=== PATIENT | female | born 1930 | race Caucasian/White ===

== ENCOUNTER 2019-12-12 10:11 | Inpatient (IN) ==
[2019-12-12] MEDS ORDERED: SODIUM CHLORIDE 0.9% 1,000 ML IV STA (10:39)
[2019-12-12 11:41] LABS: Basophils % 0.1 % (0.0-0.8); Hematocrit 31.4 VOL% (35.7-47.0); Hemoglobin 9.9 GM/DL (12.0-16.0); Immature Granulocytes % 0.5 %; Immature Granulocytes Absolute 0.07 #; Lymphocytes # 0.5 10*3/uL (1.4-4.0); Lymphocytes % 3.2 % (21.3-54.2); Mean Corpuscular HGB Conc 31.5 GM/DL (32-36); Mean Corpuscular Volume 95.4 FL (87-102); Mean Platelet Volume 9.5 FL (9.6-12.0); Monocytes % 3.5 % (1.7-12.7); Neutrophils % 92.7 % (38.7-73.9); Platelet Count 449 T/CUMM (130-400); Red Blood Count 3.29 MC/CUMM (3.8-5.5); Red Cell Distribution Width 15.3 % (9.3-17.3); White Blood Count 15.4 T/CUMM (4-12)
[2019-12-12 11:46] LABS: Amorphous Crystals,Urine Occasional /HPF (Few); Bacteria,Urine Occasional /HPF (Few); Bilirubin,Urine Negative (Negative); Blood, Urine Negative (Negative); Glucose,Urine (UA) Negative (Negative); Hyaline Casts,Urine 42 /LPF (0-3); Ketones,Urine Negative (Negative); Mucus,Urine Occasional /LPF (Occasional); Nitrite,Urine Negative (Negative); Protein,Urine Negative; RBC,Urine 1 /HPF (0-4); Squamous Epithelial Cell,Urine Occasional /HPF (0-10); Urine Appearance Slightly Hazy (Clear); Urine Color Yellow (Yellow); Urine Specific Gravity 1.017 (1.001-1.035); Urine Urobilinogen < 2.0 EU/DL (0.2-1.0); WBC,Urine <1 /HPF (0-6)
[2019-12-12 12:15] LABS: Lymphocytes 2 % (20-55); Segmented Neutrophils 96 % (50-85); Total Cells Counted 100
[2019-12-12 12:16] LABS: Anisocytosis Slight; Macrocytosis Slight; Microcytosis Slight; Platelet Estimate Normal; Poikilocytosis Slight; Target Cells Slight
[2019-12-12 12:28] LABS: Albumin 2.7 G/DL (3.4-5.0); Bilirubin,Total 0.4 MG/DL (0.2-1.0); Osmolality,Calculated 323.4 MOS/KG (273-304); Total Protein 8.2 G/DL (6.4-8.3)
[2019-12-12] MEDS ORDERED: DEXTROSE 50% 25 GM/50 ML VIAL IV PRN (14:26)
[2019-12-12] MEDS ORDERED: ACETAMINOPHEN 325 MG TABLET PO PRN (14:26)
[2019-12-12] MEDS ORDERED: ONDANSETRON 4 MG/2 ML VIAL IV PRN (14:26)
[2019-12-12] MEDS ORDERED: GLUCAGON 1 MG VIAL IM PRN (14:26)
[2019-12-12] MEDS ORDERED: LEVOFLOXACIN INJ 500 MG in PREMIX 1 EACH IV STA (14:38)
[2019-12-12] MEDS: INSULIN REGULAR 100 UNIT/ML SUBCUT SCH ×2 (17:14→21:46)
[2019-12-12] MEDS: MORPHINE 4 MG/1 ML VIAL IV PRN (17:28)
[2019-12-12] MEDS: DEXTROSE 5% NACL 0.45% 1,000 ML IV SCH (17:29)
[2019-12-12] MEDS: CLINDAMYCIN INJ 300 MG in PREMIX 1 EACH IV SCH (17:55)
[2019-12-12] MEDS: ALBUTEROL/IPRATROPIUM 3 ML NEB RESP TX SCH (19:15)
[2019-12-13] MEDS: MORPHINE 4 MG/1 ML VIAL IV PRN (00:43)
[2019-12-13] MEDS: CLINDAMYCIN INJ 300 MG in PREMIX 1 EACH IV SCH ×3 (03:04→18:23)
[2019-12-13] MEDS: ALBUTEROL/IPRATROPIUM 3 ML NEB RESP TX SCH ×4 (03:29→19:54)
[2019-12-13 05:34] LABS: Basophils % 0.1 % (0.0-0.8); Eosinophils % 0.1 % (0.00-10.9); Hematocrit 29.4 VOL% (35.7-47.0); Immature Granulocytes % 0.5 %; Immature Granulocytes Absolute 0.07 #; Lymphocytes # 0.9 10*3/uL (1.4-4.0); Lymphocytes % 6.2 % (21.3-54.2); Mean Corpuscular HGB Conc 30.6 GM/DL (32-36); Mean Corpuscular Volume 96.4 FL (87-102); Mean Platelet Volume 9.7 FL (9.6-12.0); Monocytes % 7.2 % (1.7-12.7); Neutrophils % 85.9 % (38.7-73.9); Platelet Count 372 T/CUMM (130-400); Red Blood Count 3.05 MC/CUMM (3.8-5.5); Red Cell Distribution Width 15.2 % (9.3-17.3); White Blood Count 13.8 T/CUMM (4-12)
[2019-12-13 06:02] LABS: Alanine Aminotransferase < 9 U/L (13-56); Albumin 2.3 G/DL (3.4-5.0); Alkaline Phosphatase 85 U/L (45-117); Aspartate Amino Transferase 20 U/L (0-37); Blood Urea Nitrogen 84 MG/DL (7-18); Calcium 8.8 MG/DL (8.5-10.1); Estimated Glom Filtration Rate 16 ML/MIN; Glucose 161 MG/DL (74-106); HDL Cholesterol 64 MG/DL (40-60); Osmolality,Calculated 314.8 MOS/KG (273-304); Risk Ratio 3.44; Total Protein 7.2 G/DL (6.4-8.3); Triglycerides 133 MG/DL (2-150); VLDL CHOLESTEROL 26.6 MG/DL
[2019-12-13] MEDS ORDERED: PANTOPRAZOLE 40 MG TABLET PO SCH (09:00)
[2019-12-13] MEDS ORDERED: HYDROmorphone 2 MG/1 ML VIAL IV PRN ×2 (09:58→15:08)
[2019-12-13] MEDS: INSULIN REGULAR 100 UNIT/ML SUBCUT SCH ×4 (10:06→23:29)
[2019-12-13] MEDS: THIAMINE 200 MG/2 ML VIAL IV SCH (10:07)
[2019-12-13] MEDS: DEXTROSE 5% NACL 0.45% 1,000 ML IV SCH ×2 (10:11→12:39)
[2019-12-13] MEDS: PANTOPRAZOLE 40 MG VIAL IV SCH ×2 (12:52→21:00)
[2019-12-13] MEDS: LIDOCAINE 5% PATCH TRANSDERM SCH (18:23)
[2019-12-13] MEDS: HYDROcod/ACETAMIN 7.5-325 MG/15 ML UDCUP PO PRN (18:23)
[2019-12-14] MEDS: ALBUTEROL/IPRATROPIUM 3 ML NEB RESP TX SCH ×4 (01:08→19:25)
[2019-12-14] MEDS ORDERED: SODIUM PHOSPHATE INJ 15 MMOL in SODIUM CHLORIDE 0.9% 250 ML IV ONE (08:00)
[2019-12-14] MEDS: CLINDAMYCIN INJ 300 MG in PREMIX 1 EACH IV SCH ×3 (09:55→17:50)
[2019-12-14] MEDS: PANTOPRAZOLE 40 MG VIAL IV SCH ×2 (10:03→20:31)
[2019-12-14] MEDS: THIAMINE 200 MG/2 ML VIAL IV SCH (10:03)
[2019-12-14] MEDS: INSULIN REGULAR 100 UNIT/ML SUBCUT SCH ×4 (10:07→20:29)
[2019-12-14] MEDS: MULTIVITAMIN LIQUID (CENTRUM) 60 ML BOTTLE NG SCH (10:08)
[2019-12-14] MEDS: DEXTROSE 5% NACL 0.45% 1,000 ML IV SCH ×2 (12:30→23:37)
[2019-12-14 13:01] LABS: Calcium 7.9 MG/DL (8.5-10.1); Osmolality,Calculated 297.4 MOS/KG (273-304)
[2019-12-14] MEDS: LIDOCAINE 5% PATCH TRANSDERM SCH (14:05)
[2019-12-14] MEDS: HYDROcod/ACETAMIN 7.5-325 MG/15 ML UDCUP PO PRN (21:00)
[2019-12-15] MEDS: CLINDAMYCIN INJ 300 MG in PREMIX 1 EACH IV SCH ×3 (01:43→17:57)
[2019-12-15] MEDS: ALBUTEROL/IPRATROPIUM 3 ML NEB RESP TX SCH ×4 (02:12→19:18)
[2019-12-15 05:05] LABS: Basophils % 0.1 % (0.0-0.8); Eosinophils % 0.4 % (0.00-10.9); Hematocrit 24.2 VOL% (35.7-47.0); Hemoglobin 7.7 GM/DL (12.0-16.0); Immature Granulocytes % 0.7 %; Immature Granulocytes Absolute 0.07 #; Lymphocytes % 9.7 % (21.3-54.2); Mean Corpuscular HGB Conc 31.8 GM/DL (32-36); Mean Corpuscular Volume 94.2 FL (87-102); Monocytes % 7.1 % (1.7-12.7); Platelet Count 255 T/CUMM (130-400); Red Blood Count 2.57 MC/CUMM (3.8-5.5); Red Cell Distribution Width 15.2 % (9.3-17.3); White Blood Count 10.5 T/CUMM (4-12)
[2019-12-15 05:26] LABS: Calcium 7.3 MG/DL (8.5-10.1); Osmolality,Calculated 285.5 MOS/KG (273-304)
[2019-12-15] MEDS: INSULIN REGULAR 100 UNIT/ML SUBCUT SCH ×4 (07:18→21:22)
[2019-12-15] MEDS ORDERED: propofoL 200 MG/20 ML VIAL IV ONE (09:00)
[2019-12-15] MEDS ORDERED: ETOMIDATE 20 MG/10 ML VIAL IV ONE (09:00)
[2019-12-15] MEDS ORDERED: LIDOCAINE 2% 5 ML VIAL ONE (09:00)
[2019-12-15] MEDS: MULTIVITAMIN LIQUID (CENTRUM) 60 ML BOTTLE NG SCH (09:41)
[2019-12-15] MEDS: THIAMINE 200 MG/2 ML VIAL IV SCH (09:58)
[2019-12-15] MEDS: PANTOPRAZOLE 40 MG VIAL IV SCH ×2 (09:59→20:37)
[2019-12-15] MEDS: LIDOCAINE 5% PATCH TRANSDERM SCH (10:21)
[2019-12-15] MEDS: DEXTROSE 5% NACL 0.45% 1,000 ML IV SCH ×2 (11:06→18:12)
[2019-12-15] MEDS ORDERED: TUBERCULIN SKIN TEST 0.1 ML SYRINGE INTRADERM ONE (11:30)
[2019-12-15] MEDS: LACTATED RINGERS 1,000 ML IV SCH (13:00)
[2019-12-15 17:17] LABS: Folate 5.3 NG/ML (5.4-24.0)
[2019-12-15 17:28] LABS: % Iron Saturation 12.7 % (18-50); Ferritin 392.1 ng/ml (8-252)
[2019-12-16] MEDS: ALBUTEROL/IPRATROPIUM 3 ML NEB RESP TX SCH ×4 (00:26→19:02)
[2019-12-16] MEDS: CLINDAMYCIN INJ 300 MG in PREMIX 1 EACH IV SCH ×3 (02:20→18:09)
[2019-12-16] MEDS: DEXTROSE 5% NACL 0.45% 1,000 ML IV SCH ×2 (03:38→18:02)
[2019-12-16 05:17] LABS: Basophils % 0.1 % (0.0-0.8); Eosinophils % 0.3 % (0.00-10.9); Hemoglobin 8.5 GM/DL (12.0-16.0); Immature Granulocytes % 0.5 %; Immature Granulocytes Absolute 0.05 #; Lymphocytes # 0.9 10*3/uL (1.4-4.0); Lymphocytes % 8.2 % (21.3-54.2); Mean Corpuscular HGB Conc 31.5 GM/DL (32-36); Mean Corpuscular Volume 93.4 FL (87-102); Mean Platelet Volume 10.3 FL (9.6-12.0); Monocytes % 5.5 % (1.7-12.7); Neutrophils % 85.4 % (38.7-73.9); Platelet Count 278 T/CUMM (130-400); Red Blood Count 2.89 MC/CUMM (3.8-5.5); Red Cell Distribution Width 15.2 % (9.3-17.3); White Blood Count 10.9 T/CUMM (4-12)
[2019-12-16 05:41] LABS: Alanine Aminotransferase < 6 U/L (13-56); Albumin 1.6 G/DL (3.4-5.0); Alkaline Phosphatase 82 U/L (45-117); Aspartate Amino Transferase 16 U/L (0-37); Blood Urea Nitrogen 22 MG/DL (7-18); Calcium 7.7 MG/DL (8.5-10.1); Estimated Glom Filtration Rate 49 ML/MIN; Glucose 169 MG/DL (74-106); Osmolality,Calculated 281.7 MOS/KG (273-304); Total Protein 5.8 G/DL (6.4-8.3)
[2019-12-16] MEDS: INSULIN REGULAR 100 UNIT/ML SUBCUT SCH ×4 (06:49→21:31)
[2019-12-16] MEDS: LIDOCAINE 5% PATCH TRANSDERM SCH (09:22)
[2019-12-16] MEDS: THIAMINE 200 MG/2 ML VIAL IV SCH (09:23)
[2019-12-16] MEDS: PANTOPRAZOLE 40 MG VIAL IV SCH ×2 (09:23→21:32)
[2019-12-16] MEDS: MULTIVITAMIN LIQUID (CENTRUM) 60 ML BOTTLE NG SCH (09:24)
[2019-12-16] MEDS ORDERED: MAGNESIUM SULF RIDER 2 GM in PREMIX 1 EACH IV ONE (12:46)
[2019-12-16] MEDS ORDERED: SODIUM PHOSPHATE INJ 12 MMOL in SODIUM CHLORIDE 0.9% 250 ML IV ONE (14:00)
[2019-12-16] MEDS: LACTATED RINGERS 1,000 ML IV SCH (18:02)
[2019-12-17] MEDS: ALBUTEROL/IPRATROPIUM 3 ML NEB RESP TX SCH ×4 (00:24→19:40)
[2019-12-17] MEDS: DEXTROSE 5% NACL 0.45% 1,000 ML IV SCH ×3 (00:25→20:25)
[2019-12-17] MEDS: CLINDAMYCIN INJ 300 MG in PREMIX 1 EACH IV SCH ×3 (02:40→17:12)
[2019-12-17 06:08] LABS: Basophils % 0.1 % (0.0-0.8); Eosinophils % 0.2 % (0.00-10.9); Hematocrit 24.3 VOL% (35.7-47.0); Immature Granulocytes % 0.5 %; Immature Granulocytes Absolute 0.06 #; Lymphocytes # 0.9 10*3/uL (1.4-4.0); Mean Corpuscular HGB Conc 32.9 GM/DL (32-36); Mean Corpuscular Volume 91.4 FL (87-102); Mean Platelet Volume 10.1 FL (9.6-12.0); Monocytes % 5.8 % (1.7-12.7); Neutrophils % 86.4 % (38.7-73.9); Platelet Count 283 T/CUMM (130-400); Red Blood Count 2.66 MC/CUMM (3.8-5.5); Red Cell Distribution Width 14.9 % (9.3-17.3); White Blood Count 12.6 T/CUMM (4-12)
[2019-12-17 06:25] LABS: Alanine Aminotransferase < 9 U/L (13-56); Albumin 1.5 G/DL (3.4-5.0); Alkaline Phosphatase 74 U/L (45-117); Aspartate Amino Transferase 13 U/L (0-37); Blood Urea Nitrogen 14 MG/DL (7-18); Calcium 7.6 MG/DL (8.5-10.1); Estimated Glom Filtration Rate 55 ML/MIN; Glucose 122 MG/DL (74-106); Osmolality,Calculated 276.7 MOS/KG (273-304); Total Protein 5.5 G/DL (6.4-8.3)
[2019-12-17 06:35] LABS: Hypochromasia 2+; Microcytosis 1+; Platelet Estimate Adequate
[2019-12-17] MEDS: INSULIN REGULAR 100 UNIT/ML SUBCUT SCH ×4 (07:21→20:26)
[2019-12-17] MEDS: PANTOPRAZOLE 40 MG VIAL IV SCH ×2 (10:41→20:25)
[2019-12-17] MEDS: LIDOCAINE 5% PATCH TRANSDERM SCH (10:41)
[2019-12-17] MEDS: MULTIVITAMIN LIQUID (CENTRUM) 60 ML BOTTLE NG SCH (10:41)
[2019-12-17] MEDS: THIAMINE 200 MG/2 ML VIAL IV SCH (10:41)
[2019-12-17] MEDS: LACTATED RINGERS 1,000 ML IV SCH (14:48)
[2019-12-18] MEDS: ALBUTEROL/IPRATROPIUM 3 ML NEB RESP TX SCH ×4 (00:53→19:32)
[2019-12-18] MEDS: CLINDAMYCIN INJ 300 MG in PREMIX 1 EACH IV SCH ×3 (02:50→18:40)
[2019-12-18 05:32] LABS: Basophils % 0.1 % (0.0-0.8); Eosinophils # 0.1 10*3/uL (0.0-0.87); Eosinophils % 0.8 % (0.00-10.9); Hemoglobin 8.1 GM/DL (12.0-16.0); Immature Granulocytes % 0.4 %; Immature Granulocytes Absolute 0.04 #; Lymphocytes # 0.9 10*3/uL (1.4-4.0); Lymphocytes % 8.4 % (21.3-54.2); Mean Corpuscular HGB Conc 32.4 GM/DL (32-36); Mean Corpuscular Volume 91.6 FL (87-102); Mean Platelet Volume 9.9 FL (9.6-12.0); Monocytes % 7.5 % (1.7-12.7); Neutrophils % 82.8 % (38.7-73.9); Platelet Count 275 T/CUMM (130-400); Red Blood Count 2.73 MC/CUMM (3.8-5.5); Red Cell Distribution Width 14.8 % (9.3-17.3); White Blood Count 10.5 T/CUMM (4-12)
[2019-12-18 05:49] LABS: Calcium 7.6 MG/DL (8.5-10.1); Osmolality,Calculated 268.1 MOS/KG (273-304)
[2019-12-18 06:11] LABS: Alanine Aminotransferase < 6 U/L (13-56); Albumin 1.5 G/DL (3.4-5.0); Alkaline Phosphatase 74 U/L (45-117); Aspartate Amino Transferase 13 U/L (0-37); Bilirubin,Total < 0.39 MG/DL (0.2-1.0); Blood Urea Nitrogen 8 MG/DL (7-18); Calcium 7.7 MG/DL (8.5-10.1); Estimated Glom Filtration Rate 55 ML/MIN; Glucose 125 MG/DL (74-106); Osmolality,Calculated 273.7 MOS/KG (273-304); Total Protein 5.4 G/DL (6.4-8.3)
[2019-12-18] MEDS: INSULIN REGULAR 100 UNIT/ML SUBCUT SCH ×4 (07:11→21:15)
[2019-12-18] MEDS: MULTIVITAMIN LIQUID (CENTRUM) 60 ML BOTTLE NG SCH (08:56)
[2019-12-18] MEDS: PANTOPRAZOLE 40 MG VIAL IV SCH (08:56)
[2019-12-18] MEDS: THIAMINE 200 MG/2 ML VIAL IV SCH (08:57)
[2019-12-18] MEDS: DEXTROSE 5% NACL 0.45% 1,000 ML IV SCH ×2 (08:57→21:05)
[2019-12-18] MEDS: LIDOCAINE 5% PATCH TRANSDERM SCH (09:00)
[2019-12-18] MEDS ORDERED: MAGNESIUM SULF RIDER 2 GM in PREMIX 1 EACH IV ONE (09:30)
[2019-12-18] MEDS ORDERED: SODIUM PHOSPHATE INJ 30 MMOL in SODIUM CHLORIDE 0.9% 250 ML IV ONE (09:30)
[2019-12-18] MEDS: LACTATED RINGERS 1,000 ML IV SCH (17:22)
[2019-12-19] MEDS: PANTOPRAZOLE 40 MG VIAL IV SCH ×2 (00:56→08:12)
[2019-12-19] MEDS: ALBUTEROL/IPRATROPIUM 3 ML NEB RESP TX SCH ×2 (02:05→07:25)
[2019-12-19] MEDS: CLINDAMYCIN INJ 300 MG in PREMIX 1 EACH IV SCH (05:47)
[2019-12-19] MEDS: DEXTROSE 5% NACL 0.45% 1,000 ML IV SCH (07:00)
[2019-12-19] MEDS: INSULIN REGULAR 100 UNIT/ML SUBCUT SCH ×2 (08:09→11:51)
[2019-12-19] MEDS: THIAMINE 200 MG/2 ML VIAL IV SCH (08:12)
[2019-12-19] MEDS: MULTIVITAMIN LIQUID (CENTRUM) 60 ML BOTTLE NG SCH (08:12)
[2019-12-19] MEDS: LIDOCAINE 5% PATCH TRANSDERM SCH (08:12)
[2019-12-19 11:28] VITALS: BP 116/56
== END 2019-12-19 11:55 | DRG 56 ==
LOC: EDSEX → EDUNIT# → EDBD → N.ED 10:11 → SUATTDRO 14:26 → N.EDINP 14:26 → N.3E 15:51
PROVIDERS: ADMIT Internal Medicine; ATTEND Internal Medicine
PROC: EGDWPEG (ICD-10-PCS; 2019-12-15 09:05)

== ENCOUNTER 2020-01-08 17:24 | Inpatient (IN) ==
[2020-01-08 18:23] LABS: Basophils # 0.1 10*3/uL (0.0-0.2); Basophils % 0.6 % (0.0-0.8); Eosinophils % 0.3 % (0.00-10.9); Hemoglobin 9.8 GM/DL (12.0-16.0); Immature Granulocytes % 0.4 %; Immature Granulocytes Absolute 0.06 #; Lymphocytes # 1.1 10*3/uL (1.4-4.0); Lymphocytes % 7.7 % (21.3-54.2); Mean Corpuscular HGB Conc 31.6 GM/DL (32-36); Mean Corpuscular Volume 92.5 FL (87-102); Mean Platelet Volume 9.4 FL (9.6-12.0); Monocytes % 7.2 % (1.7-12.7); Neutrophils % 83.8 % (38.7-73.9); Platelet Count 761 T/CUMM (130-400); Red Blood Count 3.35 MC/CUMM (3.8-5.5); Red Cell Distribution Width 13.9 % (9.3-17.3); White Blood Count 14.3 T/CUMM (4-12)
[2020-01-08] MEDS ORDERED: DEXTROSE 50% 25 GM/50 ML VIAL IV PRN (18:50)
[2020-01-08] MEDS ORDERED: ACETAMINOPHEN 325 MG TABLET PO PRN (18:50)
[2020-01-08] MEDS ORDERED: GLUCAGON 1 MG VIAL IM PRN (18:50)
[2020-01-08] MEDS ORDERED: ONDANSETRON 4 MG/2 ML VIAL IV PRN (18:50)
[2020-01-08 18:59] LABS: Alanine Aminotransferase 11 U/L (13-56); Albumin 2.6 G/DL (3.4-5.0); Alkaline Phosphatase 89 U/L (45-117); Aspartate Amino Transferase 22 U/L (0-37); Bilirubin,Total < 0.39 MG/DL (0.2-1.0); Blood Urea Nitrogen 37 MG/DL (7-18); Calcium 9.3 MG/DL (8.5-10.1); Carbon Dioxide 31 MMOL/L (21-32); Estimated Glom Filtration Rate 71 ML/MIN; Glucose 107 MG/DL (74-106); Potassium 5.5 MMOL/L (3.5-5.1); Sodium 136 MMOL/L (136-145); Total Protein 7.9 G/DL (6.4-8.3)
[2020-01-08] MEDS ORDERED: hydrALAZINE 20 MG/1 ML VIAL IV PRN (18:59)
[2020-01-08 19:47] LABS: PT Patient Result 10.7 SECS (9.8-11.9)
[2020-01-08] MEDS: LORazepam 2 MG/1 ML VIAL IV PRN (19:49)
[2020-01-08] MEDS: DEXTROSE 5% NACL 0.45% 1,000 ML IV SCH (21:10)
[2020-01-08] MEDS: LEVOFLOXACIN INJ 500 MG in PREMIX 1 EACH IV SCH (21:10)
[2020-01-08] MEDS: ENOXAPARIN 40 MG/0.4 ML SYRINGE SUBCUT SCH (21:10)
[2020-01-09 02:53] LABS: Bilirubin,Urine Negative (Negative); Blood, Urine Negative (Negative); Glucose,Urine (UA) Negative (Negative); Ketones,Urine Negative (Negative); Mucus,Urine Occasional /LPF (Occasional); Nitrite,Urine Negative (Negative); Protein,Urine Negative; RBC,Urine 1 /HPF (0-4); Urine Appearance CLEAR (Clear); Urine Color Yellow (Yellow); Urine Specific Gravity 1.016 (1.001-1.035); Urine Urobilinogen < 2.0 EU/DL (0.2-1.0); WBC,Urine 1 /HPF (0-6)
[2020-01-09 05:08] LABS: Basophils % 0.8 % (0.0-0.8); Eosinophils % 1.1 % (0.00-10.9); Hematocrit 27.6 VOL% (35.7-47.0); Hemoglobin 8.6 GM/DL (12.0-16.0); Immature Granulocytes % 0.4 %; Lymphocytes % 16.1 % (21.3-54.2); Mean Corpuscular HGB Conc 31.2 GM/DL (32-36); Mean Corpuscular Volume 94.2 FL (87-102); Mean Platelet Volume 10.1 FL (9.6-12.0); Monocytes % 12.9 % (1.7-12.7); Neutrophils % 68.7 % (38.7-73.9); Platelet Count 586 T/CUMM (130-400); Red Blood Count 2.93 MC/CUMM (3.8-5.5); White Blood Count 8.4 T/CUMM (4-12)
[2020-01-09 05:09] LABS: Basophils # 0.1 10*3/uL (0.0-0.2); Eosinophils # 0.1 10*3/uL (0.0-0.87); Immature Granulocytes Absolute 0.03 #; Lymphocytes # 1.4 10*3/uL (1.4-4.0)
[2020-01-09 05:32] LABS: Alanine Aminotransferase < 9 U/L (13-56); Albumin 2.1 G/DL (3.4-5.0); Alkaline Phosphatase 74 U/L (45-117); Aspartate Amino Transferase 17 U/L (0-37); Bilirubin,Total < 0.39 MG/DL (0.2-1.0); Blood Urea Nitrogen 33 MG/DL (7-18); Calcium 8.8 MG/DL (8.5-10.1); Carbon Dioxide 28 MMOL/L (21-32); Estimated Glom Filtration Rate 60 ML/MIN; Glucose 83 MG/DL (74-106); Osmolality,Calculated 275.1 MOS/KG (273-304); Potassium 4.4 MMOL/L (3.5-5.1); Sodium 135 MMOL/L (136-145); Total Protein 7.1 G/DL (6.4-8.3)
[2020-01-09] MEDS: LORazepam 2 MG/1 ML VIAL IV PRN (08:52)
[2020-01-09] MEDS: PANTOPRAZOLE 40 MG VIAL IV SCH (08:53)
[2020-01-09] MEDS ORDERED: PANTOPRAZOLE 40 MG TABLET PO SCH (09:00)
[2020-01-09] MEDS ORDERED: DOXYCYCLINE HYCLATE INJ 100 MG in SODIUM CHLORIDE 0.9% 100 ML IV ONE (11:37)
[2020-01-09] MEDS ORDERED: LACTATED RINGERS 1,000 ML IV SCH (13:00)
[2020-01-09] MEDS ORDERED: LIDOCAINE 2% 5 ML VIAL ONE (13:19)
[2020-01-09] MEDS ORDERED: ETOMIDATE 40 MG/20 ML VIAL IV ONE (13:19)
[2020-01-09] MEDS ORDERED: propofoL 200 MG/20 ML VIAL IV ONE (13:19)
[2020-01-09] MEDS: DEXTROSE 5% NACL 0.45% 1,000 ML IV SCH (15:01)
[2020-01-09] MEDS: LEVOFLOXACIN INJ 500 MG in PREMIX 1 EACH IV SCH (20:52)
[2020-01-09] MEDS: ENOXAPARIN 40 MG/0.4 ML SYRINGE SUBCUT SCH (20:57)
[2020-01-10] MEDS: DEXTROSE 5% NACL 0.45% 1,000 ML IV SCH (05:40)
[2020-01-10 06:16] LABS: Basophils # 0.1 10*3/uL (0.0-0.2); Basophils % 0.7 % (0.0-0.8); Eosinophils % 0.1 % (0.00-10.9); Hematocrit 23.5 VOL% (35.7-47.0); Hemoglobin 7.5 GM/DL (12.0-16.0); Immature Granulocytes % 0.4 %; Immature Granulocytes Absolute 0.04 #; Lymphocytes # 1.6 10*3/uL (1.4-4.0); Lymphocytes % 14.9 % (21.3-54.2); Mean Corpuscular HGB Conc 31.9 GM/DL (32-36); Mean Corpuscular Volume 92.5 FL (87-102); Mean Platelet Volume 9.7 FL (9.6-12.0); Monocytes % 9.3 % (1.7-12.7); Neutrophils % 74.6 % (38.7-73.9); Platelet Count 513 T/CUMM (130-400); Red Blood Count 2.54 MC/CUMM (3.8-5.5); Red Cell Distribution Width 13.7 % (9.3-17.3); White Blood Count 10.7 T/CUMM (4-12)
[2020-01-10 06:38] LABS: Alanine Aminotransferase < 9 U/L (13-56); Albumin 1.9 G/DL (3.4-5.0); Alkaline Phosphatase 71 U/L (45-117); Aspartate Amino Transferase 18 U/L (0-37); Blood Urea Nitrogen 18 MG/DL (7-18); Calcium 8.6 MG/DL (8.5-10.1); Carbon Dioxide 26 MMOL/L (21-32); Estimated Glom Filtration Rate 60 ML/MIN; Glucose 102 MG/DL (74-106); Potassium 3.9 MMOL/L (3.5-5.1); Sodium 136 MMOL/L (136-145); Total Protein 6.6 G/DL (6.4-8.3)
[2020-01-10] MEDS: PANTOPRAZOLE 40 MG VIAL IV SCH (08:32)
[2020-01-10 12:20] VITALS: BP 118/53
== END 2020-01-10 14:30 | DRG 393 ==
LOC: EDUNIT# → EDBD → N.ED 17:24 → N.EDINP 18:49 → N.5E 20:22
PROVIDERS: ADMIT Internal Medicine; ATTEND Internal Medicine
PROC: EGDWPEG (ICD-10-PCS; 2020-01-09 12:20)